=== PATIENT | female | born 1990 ===

== ENCOUNTER 2021-08-29 09:15 | Outpatient (RCR) | payer BC, SELFPAY ==
[2021-08-02 11:18] VITALS: BMI 42.5
--- NOTE | 2021-08-02 11:54 | PC.ADMIT ---
Patient is a 30 year old female who was referred to [facility] by her therapist/prescriber d/t symptoms of depression with intrusive SI no plan or intent, anxiety, PTSD, and ADD. Per therapist records patient has been experiencing intrusive thoughts to stab herself upon awakening in the mornings for the past several weeks. 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 Patient is having work and relationship issues with her . Struggling with ADL's. Patient currently is not on any prescription medication verified with patient and patient's pharmacy. During the nursing assessment patient presented with depressed mood and affect. She is alert and oriented x4. When asked if she had SI or thoughts to harm or kill herself she stated, Intrusive thoughts but I'm not suicidal. Denied plan or intent. Patient has a history of drinking a bottle of wine daily from [id number] and stated she drank 3 x in 2019 last time was April 2021. Patient does not feel she has issues with ETOH. Patient has no history of inpatient admissions of [facility].
--- NOTE | 2021-08-02 15:11 | PC.NURSE ---
Case opened in treatment team.
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
--- NOTE | 2021-08-03 14:58 | PM.EVENT ---
Event Note Date of Service: 08/03/21 Event Note: Reviewed notes sent by [facility], including labs. Labs drawn 08/01/2021 show ferritin as 3 (L), ref range = 6-115.
--- NOTE | 2021-08-03 15:05 | PC.NURSE ---
Upon pt's request, I wrote a letter for her indicating that she is in treatment and unable to work. I emailed this to her.
--- NOTE | 2021-08-08 16:46 | HO.PHPPROGNO ---
Subjective Subjective Date of Service: 08/08/21 Reason For Visit: Major depressive disorder Guardianship: No Medical Problems Affecting Mental Status: No Interim History: Reports ongoing dysphoric mood. Stopped Seroquel after 2 days, felt it made her ?cloudy?. No difference noted with Wellbutrin. Prefers a once daily medication. Continues with passive SI, no intent or plan. Medication Compliance: Intermittent Side effects from medications: Yes (Stop Seroquel after 2 days, reported feeling cloudy .) Attending Groups: Yes Review of Systems Acute medical concerns: No Medical Review of Systems: unchanged Review of Systems Review of Systems A full review of systems was completed and was negative with the exception of pertinent positives noted in history of the presenting illness. Yes all other systems are reviewed and are negative Constitutional: Reports no additional constitutional complaints Eyes: Reports no additional eye complaints Reports Normal hearing present Cardiovascular: Reports as per HPI Respiratory: Reports no additional respiratory complaints Genitourinary: Reports no additional female genitourinary complaints Musculoskeletal: Reports no additional musculoskeletal complaints Skin/Breast: Reports system reviewed and no additional complaints, except as docu Reports Normal hearing present Mental Status Exam Mental Status Exam Narrative: Well-developed, obese female, in NAD. No involuntary movements, no tics/tremors noted. Tearful. Patient Appearance: Well Grooomed and Appropriate Patient Orientation: Person, Place, Time and Situation Level of Consciousness: Awake, Appropriate and Alert Patient Behavior: Appropriate, Cooperative, Good Eye Contact and Crying Mood Description: Depressed and Anxious Affect Description: Depressed and Anxious Patient Cognition Impaired: No Ability to Follow Directions: Excellent Speech Pattern: Clear, Appropriate and Coherent Memory Description: Intact Hallucinations: None Delusions: Not Present Thought Process: Intact and Goal Oriented Thought Content: positive for Obsessional Thoughts (Describes intrusive thoughts of stabbing self in chest, has no intention/plan to do so.), positive for Goal Oriented, positive for Linear and positive for Suicidal Ideation (Passive, no intent/plan) Depressive Symptoms: Increased Anxiety, Increased Irritability, Difficulty Sleeping, Crying Spells, Loss of Int. in Activity, Feelings of Worthlessness, Hopelessness, Feelings of Guilt, Increased Fatigue, Thoughts of /Suicide, Low Self Esteem and Difficulty Concentrating Judgement: Fair Diagnostics Vital Signs (24Hr): BMI result Body Mass Index 42.5 Assessment & Plan Assessment & Plan (1) Major depressive disorder, recurrent severe without psychotic features: Status: Acute Code(s): F33.2 - Major depressive disorder, recurrent severe without psychotic features Assessment and Plan: Client continues with depressed and anxious mood and affect. Tearful during encounter. Reports that it is difficult to get up every day and participate in group, states it is hard to be held accountable ?. States that she is finding program helpful, although it is painful to participate and look at issues. Continues with passive SI, no intent or plan, no safety concern. Reports that she feels safe. Stop taking Seroquel due to side effect of feeling ?cloudy ?. Taking Wellbutrin, however states that it is difficult to remember the morning dose and she has missed it one or two times. Reports sleep is not well, states that she believes it is due to issues brought up and group work. Continues abstinent from alcohol. Reports no binge eating. We discussed stopping Seroquel. Discussed adding a mood stabilizer such as Lamictal. Medication was reviewed, including benefits, side effects, including rash, risk of Chester Anant's, etc. she was in agreement to start Lamictal, and is willing to change to Wellbutrin XL once daily in the morning. She was instructed to stop taking Lamictal if a rash develops, and to notify us. (2) KOJO (generalized anxiety disorder): Status: Acute Code(s): F41.1 - Generalized anxiety disorder (3) Attention-deficit hyperactivity disorder, predominantly inattentive type: Status: Acute Code(s): F90.0 - Attention-deficit hyperactivity disorder, predominantly inattentive type (4) Binge eating disorder: Status: Acute Code(s): F50.81 - Binge eating disorder Assessment and Plan: 1. D/C current Wellbutrin and Seroquel. 2. Start Wellbutrin XL 150mg in am. 3. Start lamictal 25mg daily X 14 days. 4. Encouraged to continue abstinence from alcohol. 5. Follow-up as per protocol, sooner if needed. Patient educated on: diagnosis, medication risk/benefits, substance abuse and therapeutic strategies Informed Consent: understands Reason for contiued partial hosp. stay Substantial Risk for: harm to self, inability to function and med/psych decompensation Certification I certify that partial hospital treatment is medically necessary due to the symptoms and problems resulting from the patient's mental illness and the failure to treat the patient at the partial hospital level of care would likely result in the patient requiring inpatient psychiatric care which could not be prevented at a less intensive level of care. I spent ___30___ minutes with the patient and/or on the patient floor today, greater than?50% of which was spent counseling/coordinating care. Discharge Plan Discharge Attending provider: Jean-Claude Rodgers Medications: New lamotrigine [Lamictal] 25 mg tablet 25 mg PO DAILY 14 Days Qty: 14 RF: 0 bupropion HCl 150 mg tablet extended release 24 hr 150 mg PO QAM Qty: 7 RF: 0 Telehealth Telehealth Location of provider rendering services: practice address Location of patient: address on file Patient Identification confirmed using: Name, : Yes Telehealth method: video Patient verbally consented to treatment: Yes Patient verbally consented to billing insurance company: Yes Patient informed of any privacy concerns related to visit: Yes Time spent with patient (mins): 20
--- NOTE | 2021-08-10 11:47 | HO.PHPPROGNO ---
Subjective Subjective Date of Service: 08/10/21 Reason For Visit: Major depressive disorder Guardianship: No Medical Problems Affecting Mental Status: No Interim History: Presents with depressed mood, flat , blunted affect. Reports little to no improvement regarding depressive symptoms. Continues with intrusive thoughts of SI, no intent/plan. Reports that she feels safe. Medication Compliance: Yes Side effects from medications: No Attending Groups: Yes Review of Systems Acute medical concerns: No Medical Review of Systems: unchanged Review of Systems Review of Systems Yes all other systems are reviewed and are negative Constitutional: Reports no additional constitutional complaints Mental Status Exam Mental Status Exam Narrative: Depressed mood and affect, with continued intrusive SI, no intent plan. No involuntary movements, no tics/tremors noted. Tearful. Patient Appearance: Well Grooomed and Appropriate Patient Orientation: Person, Place, Time and Situation Level of Consciousness: Awake and Appropriate Patient Behavior: Appropriate, Cooperative and Good Eye Contact Mood Description: Depressed Affect Description: Depressed, Blunted and Flat Patient Cognition Impaired: No Ability to Follow Directions: Excellent Speech Pattern: Clear, Appropriate, Monotone, Coherent and Soft-Spoken Memory Description: Intact Hallucinations: None Delusions: Not Present Thought Process: Intact, Goal Oriented and Linear Thought Content: positive for Obsessional Thoughts (Continues with intrusive thoughts of stabbing self in chest.) and positive for Suicidal Ideation (Passive, intrusive SI, with no intent/plan. ) Depressive Symptoms: Increased Anxiety, Increased Irritability, Difficulty Sleeping, Crying Spells, Loss of Int. in Activity, Feelings of Worthlessness, Hopelessness, Feelings of Guilt, Unhappiness, Increased Fatigue, Thoughts of /Suicide, Low Self Esteem, Loss of Energy and Difficulty Concentrating Judgement: Fair Diagnostics Vital Signs (24Hr): BMI result Body Mass Index 42.5 Assessment & Plan Assessment & Plan (1) Major depressive disorder, recurrent severe without psychotic features: Status: Acute Code(s): F33.2 - Major depressive disorder, recurrent severe without psychotic features Assessment and Plan: Client continues with depressed mood and affect. Continues with intrusive thoughts to stab self in chest, no intent or plan to do so. Reports that she feels safe. Continues with vegetative symptoms, including moving and speaking slowly, anhedonia, guilt, low energy, poor concentration. Discussed medication change. Discussed Lamictal titration, has agreed to put Lamictal aside for now, and start fluoxetine. Also discussed possibly adding an atypical antipsychotic such as Abilify in future if needed. Client had trialed quetiapine last week, did not like side effects. (2) KOJO (generalized anxiety disorder): Status: Acute Code(s): F41.1 - Generalized anxiety disorder (3) Binge eating disorder: Status: Acute Code(s): F50.81 - Binge eating disorder Assessment and Plan: 1. Stop Lamictal for now. 2. Start Prozac 20 mg daily. 3. Continue with current [facility] plan of care. 4. Follow-up as per protocol. Patient educated on: diagnosis, medication risk/benefits and therapeutic strategies Informed Consent: understands Reason for contiued partial hosp. stay Substantial Risk for: harm to self, inability to function and med/psych decompensation Certification I certify that partial hospital treatment is medically necessary due to the symptoms and problems resulting from the patient's mental illness and the failure to treat the patient at the partial hospital level of care would likely result in the patient requiring inpatient psychiatric care which could not be prevented at a less intensive level of care. I spent minutes with the patient and/or on the patient floor today, greater than?50% of which was spent counseling/coordinating care. Discharge Plan Discharge Attending provider: Jean-Claude Rodgers Medications: New bupropion HCl 150 mg tablet extended release 24 hr 150 mg PO QAM Qty: 7 RF: 0 fluoxetine 20 mg capsule 20 mg PO DAILY 30 Days Qty: 30 RF: 0 Telehealth Telehealth Location of provider rendering services: practice address Location of patient: address on file Patient Identification confirmed using: Name, : Yes Telehealth method: video Patient verbally consented to treatment: Yes Patient verbally consented to billing insurance company: Yes Patient informed of any privacy concerns related to visit: Yes Time spent with patient (mins): 20
--- NOTE | 2021-08-14 14:58 | P.PNPSP_ITS ---
Subjective Subjective Date of Service: 08/14/21 Reason For Visit: Major depressive disorder Guardianship: No Medical Problems Affecting Mental Status: No Interim History: Reports feeling some improvement with depression symptoms, states she feels a little more alert . Had incident with her dog choking over weekend, which triggered intrusive thoughts of SI to increase. These thoughts are passive, with no intent or plan. Medication Compliance: Yes Side effects from medications: No Attending Groups: Yes Review of Systems Acute medical concerns: No Medical Review of Systems: unchanged Review of Systems Review of Systems Yes all other systems are reviewed and are negative Constitutional: Reports no additional constitutional complaints Mental Status Exam Mental Status Exam Narrative: Depressed mood and affect, with continued intrusive SI, no intent plan. No involuntary movements, no tics/tremors noted. Patient Appearance: Well Grooomed and Appropriate Patient Orientation: Person, Place, Time and Situation Level of Consciousness: Awake and Appropriate Patient Behavior: Appropriate, Cooperative and Good Eye Contact Mood Description: Depressed Affect Description: Depressed Patient Cognition Impaired: No Ability to Follow Directions: Excellent Speech Pattern: Clear, Appropriate and Coherent Memory Description: Intact Hallucinations: None Delusions: Not Present Thought Process: Intact, Goal Oriented and Linear Thought Content: positive for Obsessional Thoughts (Continues with intrusive thoughts of SI, no plan/intent) and positive for Suicidal Ideation (Passive, intrusive SI, with no intent/plan. ) Depressive Symptoms: Increased Anxiety, Difficulty Sleeping, Loss of Int. in Activity, Feelings of Worthlessness, Hopelessness, Feelings of Guilt, Unhappiness and Thoughts of /Suicide Judgement: Fair Diagnostics Vital Signs (24Hr): BMI result Body Mass Index 42.5 Assessment & Plan Assessment & Plan (1) Major depressive disorder, recurrent severe without psychotic features: Status: Acute Code(s): F33.2 - Major depressive disorder, recurrent severe without psychotic features Assessment and Plan: Reports feeling more alert, feels her depressive symptoms are beginning to slowly improve. Continues with intrusive thoughts of SI, no intent/plan. Reports feels safe. Discussed medications. Discussed adding an atypical antipsychotic, risperidone, in order to help with intrusive thoughts. Prefers to wait at this time, to see if improvement with flouxetine which was recently added. Also discussed possibility of a TMS referral, if does not receive sufficient positive effect with medications. (2) Attention-deficit hyperactivity disorder, predominantly inattentive type: Status: Acute Code(s): F90.0 - Attention-deficit hyperactivity disorder, predominantly inattentive type Assessment and Plan: Reports some moderate improvement with Wellbutrin. (3) KOJO (generalized anxiety disorder): Status: Acute Code(s): F41.1 - Generalized anxiety disorder Assessment and Plan: 1. Continue current medications as prescribed. 2. Continue with [facility] plan of care. 3. Follow-up as per protocol. Patient educated on: diagnosis, medication risk/benefits, TMS and therapeutic strategies Informed Consent: understands Reason for contiued partial hosp. stay Substantial Risk for: harm to self, inability to function and med/psych decompensation Certification I certify that partial hospital treatment is medically necessary due to the symptoms and problems resulting from the patient's mental illness and the failure to treat the patient at the partial hospital level of care would likely result in the patient requiring inpatient psychiatric care which could not be prevented at a less intensive level of care. I spent minutes with the patient and/or on the patient floor today, greater than?50% of which was spent counseling/coordinating care. Discharge Plan Discharge Attending provider: Jean-Claude Rodgers Medications: New fluoxetine 20 mg capsule 20 mg PO DAILY 30 Days Qty: 30 RF: 0 bupropion HCl [Wellbutrin XL] 150 mg tablet extended release 24 hr 150 mg PO QAM 30 Days Qty: 30 RF: 0 Telehealth Telehealth Location of provider rendering services: practice address Location of patient: address on file Patient Identification confirmed using: Name, : Yes Telehealth method: video Patient verbally consented to treatment: Yes Patient verbally consented to billing insurance company: Yes Patient informed of any privacy concerns related to visit: Yes Time spent with patient (mins): 20
--- NOTE | 2021-08-22 16:14 | P.PNPSP_ITS ---
Subjective Subjective Date of Service: 08/22/21 Reason For Visit: Major depressive disorder Guardianship: No Medical Problems Affecting Mental Status: No Interim History: Describes mood as ?I am okay ?. Reports feeling ?less overwhelming ?. Continues with passive SI, intrusive thoughts of stabbing self in chest. Describes them as less prominent, and not lasting as long . Continues with vegetative symptoms of depression including lack of hygiene, such as not brushing teeth, not showering, not changing clothes daily. Reports erratic eating pattern. Reports excessive sleep. Taking medications as prescribed, no side effects. Denies any active SI, no safety concerns. Medication Compliance: Yes Side effects from medications: No Attending Groups: Yes Review of Systems Acute medical concerns: No Medical Review of Systems: unchanged Review of Systems Review of Systems Yes all other systems are reviewed and are negative Constitutional: Reports no additional constitutional complaints Mental Status Exam Mental Status Exam Narrative: Depressed mood and affect, with continued intrusive thoughts SI, no intent or plan. No involuntary movements, no tics/tremors noted. Patient Appearance: Fatigued, Appropriate and Unkempt Patient Orientation: Person, Place, Time and Situation Level of Consciousness: Awake and Appropriate Patient Behavior: Appropriate, Cooperative and Good Eye Contact Mood Description: Depressed Affect Description: Depressed and Flat Patient Cognition Impaired: No Ability to Follow Directions: Excellent Speech Pattern: Clear, Appropriate and Coherent Memory Description: Intact Hallucinations: None Delusions: Not Present Thought Process: Intact, Goal Oriented and Linear Thought Content: positive for Obsessional Thoughts (Continues with intrusive thoughts of SI, no plan/intent. Reports they are currently less prominent, shorter lasting. ) and positive for Suicidal Ideation (Passive, intrusive SI, with no intent/plan. ) Depressive Symptoms: Increased Anxiety, Difficulty Sleeping, Loss of Int. in Activity, Feelings of Worthlessness, Hopelessness, Feelings of Guilt, Unhappiness, Increased Fatigue, Thoughts of /Suicide, Loss of Energy and Difficulty Concentrating Judgement: Fair Diagnostics Vital Signs (24Hr): BMI result Verdana 4 Body Mass Index Verdana 4 42.5 Verdana 4 Verdana 4 Assessment & Plan Assessment & Plan (1) Major depressive disorder, recurrent severe without psychotic features: Status: Acute Code(s): F33.2 - Major depressive disorder, recurrent severe without psychotic features Assessment and Plan: Continues with vegetative symptoms of depression, lack of ADLs. Continued intrusive thoughts, passive SI. No intent or plan, no safety concern at this time. Denies any side effects from medications. Reports that intrusive thoughts are not as prominent in do not last as long as when she began program. Discussed medication options. Client had trialed low-dose of atypical antipsychotic quetiapine, did not like it. Discussed adding another atypical antipsychotic, client was not interested at this time. Discussed TMS, client not interested due to time commitment. Discussed medications Wellbutrin and Prozac, including dose increase. She was agreeable to this. (2) KOJO (generalized anxiety disorder): Status: Acute Code(s): F41.1 - Generalized anxiety disorder (3) Attention-deficit hyperactivity disorder, predominantly inattentive type: Status: Acute Code(s): F90.0 - Attention-deficit hyperactivity disorder, predominantly inattentive type Plan 1. Increase Wellbutrin XL to 300 mg daily. Seven day script sent to pharmacy. 2. Continue fluoxetine 20 mg daily. 3. Follow-up as per protocol. 4. Continue with current [facility] plan of care. Patient educated on: diagnosis, medication risk/benefits, TMS and therapeutic strategies Informed Consent: understands Reason for contiued partial hosp. stay Substantial Risk for: harm to self, inability to function and med/psych decompensation Certification I certify that partial hospital treatment is medically necessary due to the symptoms and problems resulting from the patient's mental illness and the failure to treat the patient at the partial hospital level of care would likely result in the patient requiring inpatient psychiatric care which could not be prevented at a less intensive level of care. I spent minutes with the patient and/or on the patient floor today, greater than?50% of which was spent counseling/coordinating care. Discharge Plan Discharge Attending provider: Jean-Claude Rodgers Medications: New fluoxetine 20 mg capsule 20 mg PO DAILY 30 Days Qty: 30 0RF bupropion HCl [Wellbutrin XL] 300 mg tablet extended release 24 hr 300 mg PO QAM 7 Days Qty: 7 0RF Telehealth Telehealth Location of provider rendering services: practice address Location of patient: address on file Patient Identification confirmed using: Name, : Yes Telehealth method: video Patient verbally consented to treatment: Yes Patient verbally consented to billing insurance company: Yes Patient informed of any privacy concerns related to visit: Yes Time spent with patient (mins): 25
--- NOTE | 2021-08-27 12:11 | P.PNPSP_ITS ---
Subjective Subjective Date of Service: 08/27/21 Reason For Visit: Major depressive disorder Guardianship: No Medical Problems Affecting Mental Status: No Interim History: Reports feeling irritable, wanting to be Left alone . No SI, no safety concerns. Continues with obsessive thoughts, although not as intense or frequent as when she started PHP. Bruxism notable, reports 50 times per day, have to relax my jaw . Medication Compliance: Yes Side effects from medications: Yes (bruxism) Attending Groups: Yes Review of Systems Acute medical concerns: No Medical Review of Systems: changed Review of Systems Review of Systems Yes all other systems are reviewed and are negative Constitutional: Reports no additional constitutional complaints Reports mouth pain (jaw pain, bruxism) Mental Status Exam Mental Status Exam Narrative: Irritable, depressed mood, depressed / flat affect. No tics/tremors noted. Grooming improved. Patient Appearance: Appropriate Patient Orientation: Person, Place, Time and Situation Level of Consciousness: Awake and Appropriate Patient Behavior: Appropriate, Cooperative and Good Eye Contact Mood Description: Depressed and Angry (reports feeling irritable . ) Affect Description: Depressed and Flat Patient Cognition Impaired: No Ability to Follow Directions: Excellent Speech Pattern: Clear, Appropriate and Coherent Memory Description: Intact Hallucinations: None Delusions: Not Present Thought Process: Intact, Goal Oriented and Linear Thought Content: positive for Obsessional Thoughts (Continues with intrusive thought, says less intense, less frequent. ) Depressive Symptoms: Difficulty Sleeping, Loss of Int. in Activity, Feelings of Worthlessness, Hopelessness, Feelings of Guilt, Unhappiness and Increased Fatigue Judgement: Fair Diagnostics Vital Signs (24Hr): BMI result Verdana 4 Body Mass Index Verdana 4 42.5 Verdana 4 Verdana 4 Assessment & Plan Assessment & Plan (1) Major depressive disorder, recurrent severe without psychotic features: Status: Acute Code(s): F33.2 - Major depressive disorder, recurrent severe without psychotic features Assessment and Plan: Client reports feeling continued irritable, depressed mood. Reports side effect of bruxism, states ?I have to make my jaw relax about 50 times a day ?. States that it has increased over the past week. Continues with intrusive thoughts, although less intense, less frequent. No SI/HI, no safety concern at this time. Education regarding serotonergic agents provided. Client reports side effect is difficult to experience. Discussed other options, including continued Wellbutrin, as it appears to be effective with ADHD symptoms as well as depression. Removing Prozac at this time, adding low-dose Abilify to help with intrusive thoughts. Client was agreeable to this plan. (2) KOJO (generalized anxiety disorder): Status: Acute Code(s): F41.1 - Generalized anxiety disorder (3) Attention-deficit hyperactivity disorder, predominantly inattentive type: Status: Acute Code(s): F90.0 - Attention-deficit hyperactivity disorder, predominantly inattentive type Plan 1. D/c fluoxetine. 2. Add aripiprazole 2 mg daily. 3. Continue with Wellbutrin XL 300 mg daily. Patient educated on: diagnosis, medication risk/benefits and therapeutic strategies Informed Consent: understands Reason for contiued partial hosp. stay Substantial Risk for: inability to function and med/psych decompensation Certification I certify that partial hospital treatment is medically necessary due to the symptoms and problems resulting from the patient's mental illness and the failure to treat the patient at the partial hospital level of care would likely result in the patient requiring inpatient psychiatric care which could not be prevented at a less intensive level of care. I spent minutes with the patient and/or on the patient floor today, greater than?50% of which was spent counseling/coordinating care. Discharge Plan Discharge Attending provider: Jean-Claude Rodgers Medications: New bupropion HCl [Wellbutrin XL] 300 mg tablet extended release 24 hr 300 mg PO QAM 7 Days Qty: 7 0RF aripiprazole [Abilify] 2 mg tablet 2 mg PO DAILY 10 Days Qty: 10 0RF Telehealth Telehealth Location of provider rendering services: practice address Location of patient: address on file Patient Identification confirmed using: Name, : Yes Telehealth method: video Patient verbally consented to treatment: Yes Patient verbally consented to billing insurance company: Yes Patient informed of any privacy concerns related to visit: Yes Time spent with patient (mins): 20
--- NOTE | 2021-08-29 16:01 | PC.NURSE ---
Patient discharged from the program today. Patient feeling ready for discharge. Patient reports she continues to have intrusive SI however stated she has no plan or intent to hurt herself. Patient reports she is safe. She has the crisis number if needed. reviewed patient medications with patient. Patient reports taking medications as prescribed.
--- NOTE | 2021-08-29 16:06 | PC.NURSE ---
I called and left a message for pt's therapist, Barb Nolan, PhD at the [facility] ([phone]). I informed her about pt's discharge from [facility] today, and about pt's clinical presentation.
== END 2021-08-29 23:59 | disposition home or self-care (01) ==
LOC: HO.PHPA 09:15
PROVIDERS: Visit Provider Psychiatry & Neurology Psychiatry
DX: F33.2 Major depressive disorder, recurrent severe without psychotic features (principal); F90.0 Attention-deficit hyperactivity disorder, predominantly inattentive type; F41.1 Generalized anxiety disorder; F50.81 Binge eating disorder; Z79.899 Other long term (current) drug therapy
CPT/HCPCS: 90791; 90853